=== PATIENT | female | born 1990 | race African-American/Black ===

== ENCOUNTER 2017-03-08 09:55 | Inpatient (IN) | payer OTHER ==
[~2017-03-08] VITALS: Ht 165.1 cm; Wt 62.7 kg
[2017-03-08 11:10] LABS: ADD MIUA? YES; BILIRUBIN NEGATIVE; BLOOD NEGATIVE; COLOR YELLOW ((YELLOW)); GLUCOSE (STRIP) NEGATIVE; KETONES NEGATIVE; LEUKOCYTES NEGATIVE; NITRITE NEGATIVE; PROTEIN (STRIP) 30; SPECIFIC GRAVITY 1.027 (1.000-1.030)
[2017-03-08 11:14] LABS: BACTERIA NONE SEEN /HPF; CALCIUM OXALATE CRYSTALS 3+ /HPF; EPITHELIAL CELLS 1+ /HPF; MUCUS TRACE /LPF; RED BLOOD CELLS 0-5 /HPF (0-5); UCUL ADDED? NO; WHITE BLOOD CELLS 0-5 /HPF (0-5)
[2017-03-08 11:20] LABS: AMPHETAMINE NEGATIVE (500 ng/mL); BARBITURATES NEGATIVE (200 ng/mL); BENZODIAZEPINES NEGATIVE (150 ng/mL); COCAINE PRESUMPTIVE POSITIVE (150 ng/mL); METHADONE PRESUMPTIVE POSITIVE (200 ng/mL); METHAMPHETAMINE NEGATIVE (500 ng/mL); OPIATES (MORPHINE) NEGATIVE (100 ng/mL); OXYCODONE NEGATIVE (100 ng/mL); PHENCYCLIDINE PRESUMPTIVE POSITIVE (25 ng/mL); PROPOXYPHENE NEGATIVE (300 ng/mL); THC CANNABINOIDS PRESUMPTIVE POSITIVE (50 ng/mL); TRICYCLIC ANTIDEPRESSANTS NEGATIVE (300 ng/mL)
[2017-03-08 11:21] LABS: ADD MEDTOX COMMENT Y; INTERNAL CONTROLS VALID? YES
[2017-03-08 14:08] LABS: EOSINOPHIL (%) 9.4 % (0-5); EOSINOPHIL COUNT 0.5 K/uL (0-0.3); HEMATOCRIT 37.1 % (36.0-46.0); IMMATURE GRANULOCYTE (%) 0.2 % (0.0-0.7); INSTRUMENT ABS NEUTROPHIL CT 2.1 K/uL; LYMPHOCYTE COUNT 2.5 K/uL (1.0-2.8); MCH 32.6 PG (29.0-34.0); MCV 95.9 FL (83-99); MONOCYTE (%) 10.8 % (3-12); MONOCYTE COUNT 0.6 K/uL (0-0.8); NEUTROPHIL COUNT 2.1 K/uL (1.8-6.4); RBC DIS.WIDTH-CV 14.3 % (11.8-14.6); RBC DIS.WIDTH-SD 49.8 % (39-53); RED BLOOD COUNT 3.87 M/uL (3.80-5.20); WHITE BLOOD COUNT 5.8 K/uL (4.1-10.2)
[2017-03-08 14:22] LABS: CHLORIDE 105 mEq/L (99-109); POTASSIUM 4.5 mEq/L (3.7-5.4); SODIUM 139 mEq/L (136-147)
[2017-03-08 14:23] LABS: GLUCOSE 81 mg/dL (70-99)
[2017-03-08 14:25] LABS: ANION GAP 7 MEQ/L (2-14)
[2017-03-08 14:27] LABS: GFR ESTIMATE (CALCULATED) > 59 mL/min/
[2017-03-08 14:28] LABS: UREA NITROGEN (BUN) 13 mg/dL (9-23)
[2017-03-08 14:51] LABS: HEMATOLOGY COMMENT 1 SMEAR COMPATIBLE; MEAN PLAT.VOLUME 11.3 uM^3 (9.5-12.4); PLAT.SUFFICIENCY DECREASED; PLATELET COUNT 233 K/uL (156-360)
[2017-03-08 18:03] LABS: SERUM ETHYL ALCOHOL < 10 mg/dL
[2017-03-09] MEDS ORDERED: VISTARIL50 MG PO (00:09)
[2017-03-09] MEDS ORDERED: RISPERDAL1 MG PO (00:10)
[2017-03-09 00:58] VITALS: BP 118/92
[2017-03-09] MEDS ORDERED: METHADOSE10 MG/1 ML PO (01:32)
[2017-03-09 07:51] VITALS: BP 101/60
[2017-03-09 15:37] VITALS: BP 111/62
[2017-03-10 07:56] VITALS: BP 108/65
[2017-03-10 15:54] VITALS: BP 83/46
[2017-03-11 07:34] VITALS: BP 85/53
[2017-03-11 16:12] VITALS: BP 93/56
[2017-03-12 07:48] VITALS: BP 84/46
== END 2017-03-12 12:31 | disposition home or self-care (01) | DRG 882 ==
LOC: EME 09:55 → 1WEST 23:06 → EDOF 23:06 → 1WEST 23:06 → ENRESERV 23:45 → 1WEST 03-09 00:33
PROVIDERS: Emergency Medicine
DX: F43.23 Adjustment disorder with mixed anxiety and depressed mood (principal); R45.851 Suicidal ideations; F14.20 Cocaine dependence, uncomplicated; F11.24 Opioid dependence with opioid-induced mood disorder; F12.10 Cannabis abuse, uncomplicated; F16.10 Hallucinogen abuse, uncomplicated; F17.210 Nicotine dependence, cigarettes, uncomplicated; J45.909 Unspecified asthma, uncomplicated; R00.1 Bradycardia, unspecified; Z59.0 Homelessness; Z56.0 Unemployment, unspecified; Z86.73 Personal history of transient ischemic attack (TIA), and cerebral infarction without residual deficits; Z91.14 Patient's other noncompliance with medication regimen; T43.3X5A Adverse effect of phenothiazine antipsychotics and neuroleptics, initial encounter
CPT/HCPCS: 71020; 80048; 81003; 84999; 85025; 90839; 93005; 99281; 99285; G0480; J0780; J2310; J2405; J2765; J7030; Q0177